=== PATIENT | male | born 1990 | race Caucasian/White ===

== ENCOUNTER 2018-06-11 13:49 | Emergency (ER) | payer SELFPAY ==
[~2018-06-11] VITALS: Ht 185.4 cm; Wt 97.5 kg
[2018-06-11 14:05] VITALS: BP 127/70
[2018-06-11] MEDS ORDERED: IPRATRPIUM/ALBUTEROL 0.5/2.5MG 3 ML NEBU. NEB ONE (14:15)
[2018-06-11] MEDS ORDERED: PRED50TA PO (14:59)
[2018-06-11] MEDS ORDERED: AMOX875T PO (14:59)
--- NOTE | 2018-06-11 15:00 | PHYS DOC ---
Past Medical History Past Medical History: Asthma, Other Additional Past Medical Histor: PEPTIC ULCER Past Surgical History: No Surgical History Alcohol Use: None Drug Use: None Adult General Chief Complaint Chief Complaint: COUGH HPI HPI Patient is a 27 year old male who presents with upper respiratory symptoms along with exacerbation of his asthma. The patient states that he has a sore throat, bilateral earaches, extreme nasal congestion and wheezing. The patient' s symptoms began over the past 2-3 days and have worsened today. He does have an albuterol inhaler at home and has gotten moderate relief from his asthma symptoms. Review of Systems Review of Systems Constitutional: Denies fever or chills [] Eyes: Denies change in visual acuity, redness, or eye pain [] HENT: See history of present illness Respiratory: See history of present illness Cardiovascular: No additional information not addressed in HPI [] GI: Denies abdominal pain, nausea, vomiting, bloody stools or diarrhea [] : Denies dysuria or hematuria [] Musculoskeletal: Denies back pain or joint pain [] Integument: Denies rash or skin lesions [] Neurologic: Denies headache, focal weakness or sensory changes [] Endocrine: Denies polyuria or polydipsia [] All other systems were reviewed and found to be within normal limits, except as documented in this note. Current Medications Current Medications Current Medications Medications (Trade) Dose Ordered Sig/Clara Start Time Stop Time Status Last Admin Dose Admin Albuterol/ Ipratropium (Duoneb) 3 ml 1X ONCE 06/11/18 14:15 06/11/18 14:16 DC 06/11/18 14:26 3 ML Allergies Allergies Allergies Coded Allergies Type Severity Reaction Last Updated Verified No Known Drug Allergies 06/11/18 No Physical Exam Physical Exam Constitutional: Well developed, well nourished, no acute distress, non-toxic appearance. [] HENT: Normocephalic, atraumatic, bilateral tympanic membranes are erythematous, oropharynx moist, no oral exudates or pharyngeal erythema, nares are erythematous with nasal drainage noted to back of throat[] Eyes: PERRLA, EOMI, conjunctiva normal, no discharge. [] Neck: Normal range of motion, no tenderness, supple, no stridor. [] Cardiovascular:Heart rate regular rhythm, no murmur [] Lungs & Thorax: Bilateral breath sounds decreased at bases with wheezing noted Abdomen: Bowel sounds normal, soft, no tenderness, no masses, no pulsatile masses. [] Skin: Warm, dry, no erythema, no rash. [] Neurologic: Alert and oriented X 3, normal motor function, normal sensory function, no focal deficits noted. [] Psychologic: Affect normal, judgement normal, mood normal. [] Current Patient Data Vital Signs Vital Signs Date Time Temp Pulse Resp B/P (MAP) Pulse Ox O2 Delivery O2 Flow Rate FiO2 06/11/18 14:29 98 Room Air 06/11/18 14:05 99.4 66 16 127/70 (89) 99.4 EKG EKG [] Radiology/Procedures Radiology/Procedures [] Course & Med Decision Making Course & Med Decision Making Pertinent Labs and Imaging studies reviewed. (See chart for details) [Following administration of a DuoNeb treatment the patient's wheezing has resolved. The patient states that he has a full pro-air inhaler at home and does not require a refill. Dragon Disclaimer Dragon Disclaimer This electronic medical record was generated, in whole or in part, using a voice recognition dictation system. Departure Departure Impression: Primary Impression: Upper respiratory infection Additional Impressions: Asthma exacerbation Otitis media Disposition: HOME, SELF-CARE Condition: STABLE Referrals: UNKNOWN PCP NAME (PCP) Patient Instructions: Asthma, Adult, Otitis Media, Adult, Upper Respiratory Infection, Adult Scripts Amoxicillin (AMOXICILLIN) 875 Mg Tablet 1 TAB PO BID for infection, #20 TAB Prov: CLEMENTE GLASGOW APRN 06/11/18 Prednisone (PREDNISONE) 50 Mg Tablet 1 TAB PO DAILY for asthma, #5 TAB Prov: CLEMENTE GLASGOW APRN 06/11/18 Attending Signature Attending Signature I have reviewed the PA/BUSINESS INFORMATION ANALYST's note and plan of care. I was available for consultation as needed during the patient's visit in the emergency department. I agree with the clinical impression, plan, and disposition. Problem Qualifiers CLEMENTE GLASGOW APRN Jun 11, 2018 15:00 KAITLYN LEHMAN DO Jun 11, 2018 22:13
== END 2018-06-11 15:07 | disposition home or self-care (01) ==
LOC: ER 13:49
DX: J45.901 Unspecified asthma with (acute) exacerbation (principal); J06.9 Acute upper respiratory infection, unspecified; H66.93 Otitis media, unspecified, bilateral
CPT/HCPCS: 94640; 99283; J7620

== ENCOUNTER 2020-11-07 04:54 | Emergency (ER) | payer OTHER ==
[~2020-11-07] VITALS: Ht 185.4 cm; Wt 97.7 kg
[~2020-11-07 04:54] MED LIST: AMOX875T PO; PRED50TA PO
[2020-11-07] MEDS ORDERED: AZIT250T PO (05:11)
[2020-11-07] MEDS ORDERED: GUAI120L35 PO (05:20)
--- NOTE | 2020-11-07 05:21 | PHYS DOC ---
Past Medical History Past Medical History: Asthma, Other Additional Past Medical Histor: PEPTIC ULCER Past Surgical History: No Surgical History Smoking Status: Never Smoker Alcohol Use: None Drug Use: None General Adult EDM: Chief Complaint: MULTIPLE COMPLAINTS HPI: HPI: Patient is a 30 year old male with no past medical history presents with a chief complaint of bilateral ear throat pain. Patient has associated cough with sputum production. Patient states symptoms been ongoing for the last few days but worse within the last hour. Patient denies any associated fevers or chills or muscle aches. Patient denies any sick contacts. Patient has not had his Covid shot. Review of Systems: Review of Systems: Review of systems: Constitutional symptoms- No fever, no chills. Eyes- No Discharge, No Visual Loss Respiratory symptoms- No shortness of breath, No wheezing, No Dyspnea on Exe rtion Cardiovascular Systems; Positive chest pain, No Palpitations, No syncope Gastrointestinal symptoms: NO abdominal pain, no nausea, no vomiting or diarrhea. Genitourinary symptoms: No dysuria. Musculoskeletal symptoms: No back pain No extremity pain. NEUROLOGICAL Symptoms: No headache, no generalized weakness; No focal Weakness ENT positive sore throat positive ear pain Heart Score: C/O Chest Pain: N/A Risk Factors: Risk Factors: DM, Current or recent (<one month) smoker, HTN, HLP, family history of CAD, obesity. Risk Scores: Score 0 - 3: 2.5% MACE over next 6 weeks - Discharge Home Score 4 - 6: 20.3% MACE over next 6 weeks - Admit for Clinical Observation Score 7 - 10: 72.7% MACE over next 6 weeks - Early Invasive Strategies Allergies: Allergies: Allergies Coded Allergies Type Severity Reaction Last Updated Verified No Known Drug Allergies 06/11/18 No Physical Exam: PE: General: alert, no acute distress. Skin: warm, dry and intact. Head:: Normocephalic, atraumatic. Neck: Trachea midline. Eyes: EOMI, Normal conjunctiva, No drainage CARDIOVASCULAR: Regular rate and rhythm RESPIRATORY: No respiratory distress Back: Full range of motion. MUSCULOSKELETAL: Full range of motion of bilateral upper and lower extremities. GASTROINTESTINAL: Abdomen soft without rebound or guarding. NEUROLOGICAL: Alert and noted to person, place and time. No neurological deficits observed Psychiatric: Cooperative. Normal judgment HEENT pharyngeal erythema postnasal drip EKG: EKG: [] Radiology/Procedures: Radiology/Procedures: [] Course & Med Decision Making: Course & Med Decision Making Pertinent Labs and Imaging studies reviewed. (See chart for details) [] Patient was evaluated for chief complaint. Work-up consisted of a Covid test. Treatment included Decadron and Toradol. Patient discharged home on Zithromax and Robitussin with codeine. Dragon Disclaimer: Dragon Disclaimer: This electronic medical record was generated, in whole or in part, using a voice recognition dictation system. Departure Departure Impression: Primary Impression: Viral syndrome Additional Impression: Person under investigation for COVID-19 Disposition: HOME / SELF CARE / HOMELESS Condition: STABLE Referrals: UNKNOWN PCP NAME (PCP) Patient Instructions: Sore Throat, Viral Syndrome Additional Instructions: You have been tested for or diagnosed with COVID-19. It is an infection caused by a new type of coronavirus. COVID-19 will cause cold-like or mild flu symptoms in most. It can cause more severe symptoms like problems breathing in some. There is no treatment for COVID-19. The body will clear the infection over time. Self-care will help to ease discomfort. Steps to Take: Self-Care Rest as needed. Healthy habits may help you feel better. Steps include: Choose healthy foods including fruits and vegetables. Drink water throughout the day. Get plenty of sleep each night. If you smoke, try to quit. It may ease breathing. Avoid alcohol. Keep Others Healthy The virus can spread to others. Droplets are released every time you sneeze or cough. The droplets can get into the mouth, nose, or eyes of people near you and lead to infection. To lower the chances of spreading COVID-19 to others: Stay at home until your doctor has said it is safe to leave. If you tested positive this will mean staying isolated until both of the following are true: At least 7 days have passed since the start of illness. You are free of fever for at least 72 hours without the use of medicine. During this time: - Avoid public areas, events, or transportation. Do not return to work or school until your doctor has said it is safe to do so. - Call ahead if you need to go to a medical center. Let them know you may have COVID-19. It will help them guide you where to go. They may also ask you to wear a facemask when you come to the office. - If you call for emergency medical services, let them know you may have COVID- 19. While at home: - Try to avoid close contact with others. Stay about 6 feet away. - If possible, spend most of your time in a separate room from others. - Use a face mask if you will be in close contact with others such as sharing a room or vehicle. - Have someone wipe down common surfaces in the home. Use household chef saucier every day on areas like doorknobs, counters, or sinks. - Cough or sneeze into a tissue. Throw the tissue away right after use. If a tissue is not available, cough or sneeze into your elbow. - Wash your hands often. Wash them after sneezing or coughing. Use soap and water and wash for at least 20 seconds. Alcohol based hand last cleaner can be used if soap and water is not available. - Do not prepare food for others. Avoid sharing personal items like forks, spoons, or toothbrushes. - Avoid close contact with pets while you are sick. There is no evidence of the virus passing to pets. This is a safety step until more is known about this virus. Isolation can be frustrating. Social interaction can help. Keep in touch with friends and family through phone and tech options. You can still interact with others in your home, just keep a safe distance of about 6 feet. Follow-up: Your doctors office will check in with you to see if there are any changes in your health. You may be asked to keep track of symptoms to share with them. They will also let you know when you are clear to be in public again. Problems to Look Out For: Contact your doctor if your recovery is not going as you expect. Get emergency care if you have problems such as: - Trouble breathing - Nonstop chest pain or pressure - Changes in awareness, confusion, or problems waking - Lips or face have bluish color - Worsening of symptoms If you think you have an emergency, call for emergency medical services right away. As taken from [facility] Guaifenesin/Codeine Phosphate (Codeine-Guaifen 10-100 mg/5 ml) 120 Ml Liquid 10-May ML PO PRN Q4HRS PRN for cough and congestion MDD 60 Milliliter(s) for 4 Days, #240 ML 0 Refills Prov: SERGIO HOFFMAN DO 11/07/20 Azithromycin (ZITHROMAX) 250 Mg Tablet 1 PKG PO UD, #6 TAB Prov: SERGIO HOFFMAN DO 11/07/20 SERGIO HOFFMAN DO Nov 07, 2020 05:21
[2020-11-07 05:58] VITALS: BP 128/77
[2020-11-07] MEDS ORDERED: DEXAMETHASONE SOD PHOS 20 MG/5 ML VIAL. PO ONE (06:00)
[2020-11-07] MEDS ORDERED: KETOROLAC 60 MG/2 ML VIAL. IM ONE (06:00)
--- NOTE | 2020-11-09 09:31 | NUR ---
IP: Attempted to contact pt concerning COVID results. No answer, left a voicemail to return the call.
--- NOTE | 2020-11-09 09:53 | NUR ---
IP: Pt returned my call. I informed him of the negative COVID test. Pt verbalized understanding.
== END 2020-11-07 06:29 | disposition home or self-care (01) ==
LOC: ER 04:54
DX: B34.9 Viral infection, unspecified (principal); Z20.822 Contact with and (suspected) exposure to COVID-19; R07.0 Pain in throat; R05 Cough; J45.909 Unspecified asthma, uncomplicated
CPT/HCPCS: 96372; 99283; J1100; J1885; U0003; U0005